=== PATIENT | male | born 1965 | race African-American/Black ===

== ENCOUNTER 2018-11-27 08:12 | Emergency (ER) | payer OTHER ==
[~2018-11-27] VITALS: Ht 167.6 cm; Wt 73.0 kg
[2018-11-27 08:18] VITALS: BP 130/69
--- NOTE | 2018-11-27 08:23 | NUR ---
PT AMBULATED TO ER BED 09
--- NOTE | 2018-11-27 08:30 | NUR ---
PT. BIB FAMILY MEMBER W/ C/O COUGH AND BODY ACHES X 3 DAYS. PT ALSO REPORTS INGUINAL HERNIA X MONTHS. COUGHED UP "SPECK OF BLOOD" PER PATIENT. DENIES ANY N/V/D. DENIES ANY FEVER OR CHILLS AT THIS TIME. 8/10 ACHING PAIN ALL OVER BODY. RR EVEN AND UNLABORED. LS:CLEAR THROUGHOUT. SYMMETRICAL CHEST RISE NOTED. ABLE TO SPEAK IN FULL AND COMPLETE SENTENCES. WILL CONTINUE TO MONITOR. SAFETY PRECAUTIONS IN PLACE. FAMILY MEMBER AT BEDSIDE. ER MD MADE AWARE
--- NOTE | 2018-11-27 08:36 | NUR ---
RESIDENT AT BEDSIDE EVALUATING PATIENT AT THIS TIME
--- NOTE | 2018-11-27 09:24 | NUR ---
influenza a and b specimen collected. lab contacted for pickup
[2018-11-27 10:47] VITALS: BP 130/69
--- NOTE | 2018-11-27 10:47 | NUR ---
Patient discharged with v/s stable. Written and verbal after care instructions given and explained. Patient alert, oriented and verbalized understanding of instructions. Ambulatory with steady gait. All questions addressed prior to discharge. ID band removed. Patient advised to follow up with PMD. Rx of tamiflu/naprosyn/zofran/tessalon perles given. Patient educated on indication of medication including possible reaction and side effects. Opportunity to ask questions provided and answered.
== END 2018-11-27 10:47 | disposition home or self-care (01) ==
LOC: MED 08:12
DX: J10.1 Influenza due to other identified influenza virus with other respiratory manifestations (principal); F17.210 Nicotine dependence, cigarettes, uncomplicated
CPT/HCPCS: 36415; 87804; 99283

== ENCOUNTER 2019-01-14 07:59 | Emergency (ER) | payer OTHER ==
[~2019-01-14] VITALS: Ht 167.6 cm; Wt 68.0 kg
[2019-01-14 08:07] VITALS: BP 142/81
--- NOTE | 2019-01-14 08:07 | NUR ---
53 Y M BIB SELF C/O BACK PAIN X 3 DAYS RADIATING DOWN TO THE R SIDE OF HIS BODY. PAIN 08/02. +ROM, -REDNESS, -SWELLING, -ECCHYMOSIS. PT STATES IT WORSENS WITH COLD WEATHER. 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 PT IN GOWN. BED IS DOWN, LOCKED, BED RAIL X 1, ERMD NOTIFIED. PMH-CHRONIC BACK PAIN, NO PREVIOUS SURGERIES. RX-NONE
--- NOTE | 2019-01-14 09:40 | NUR ---
DR ZHENG AT BEDSIDE
[2019-01-14] MEDS ORDERED: KETOROLAC 60 MG/2 ML VIAL IM ONE (09:45)
[2019-01-14 10:58] VITALS: BP 140/79
--- NOTE | 2019-01-14 10:58 | NUR ---
Patient discharged with v/s stable BY DR ZHENG. Written and verbal after care instructions given and explained. Patient alert, oriented and verbalized understanding of instructions. Ambulatory with steady gait. All questions addressed prior to discharge. ID band removed. Patient advised to follow up with PMD. Rx of NAPROSYN given. Patient educated on indication of medication including possible reaction and side effects. Opportunity to ask questions provided and answered.
== END 2019-01-14 11:03 | disposition home or self-care (01) ==
LOC: MED 07:59
DX: M54.41 Lumbago with sciatica, right side (principal); M51.36 Other intervertebral disc degeneration, lumbar region; G89.29 Other chronic pain
CPT/HCPCS: 96372; 99283; J1885

== ENCOUNTER 2019-01-19 11:52 | Emergency (ER) | payer OTHER ==
[~2019-01-19] VITALS: Ht 167.6 cm; Wt 70.4 kg
[2019-01-19 11:57] VITALS: BP 127/77
--- NOTE | 2019-01-19 12:03 | NUR ---
PATIENT AMBULATED TO ER BED 4
--- NOTE | 2019-01-19 12:18 | NUR ---
PT BIB SELF TO THE ED WITH THE CHIEF C/O NUMBNESS AND PAIN ON RIGHT LEG SINCE TUESDAY. PT WAS HERE ON TUESDAY FOR BACK PAIN. TAKING NAPROSYN FOR BACK PAIN. NAPROSYN IS NOT HELPING TO DECREASE THE LEG PAIN. STATES PAIN OF 8/10 AT THIS TIME. NO SWELLING OR REDNESS. PT AMBULATES. DENIES ANY OTHER PROBLEM AT THIS TIME. PT SEEN BY ER .
[2019-01-19 12:35] VITALS: BP 125/74
--- NOTE | 2019-01-19 12:35 | NUR ---
Patient discharged with v/s stable. Written and verbal after care instructions given and explained. Patient alert, oriented and verbalized understanding of instructions. Ambulatory with steady gait. All questions addressed prior to discharge. ID band removed. Patient advised to follow up with PMD. Rx of VALIUM AND BACITRACIN given. Patient educated on indication of medication including possible reaction and side effects. Opportunity to ask questions provided and answered.
== END 2019-01-19 12:35 | disposition home or self-care (01) ==
LOC: MED 11:52
DX: M79.651 Pain in right thigh (principal); M54.31 Sciatica, right side
CPT/HCPCS: 99283

== ENCOUNTER 2023-03-23 12:08 | Emergency (ER) | payer OTHER ==
[~2023-03-23] VITALS: Ht 167.6 cm; Wt 67.6 kg
[2023-03-23 12:31] VITALS: BP 120/61
[2023-03-23 13:19] LABS: APPEARANCE,URINE CLEAR (CLEAR); BILIRUBIN,URINE NEGATIVE (NEGATIVE); BLOOD, URINE NEGATIVE (NEGATIVE); COLOR,URINE YELLOW (YELLOW); LEUKOCYTE ESTERASE ,URINE NEGATIVE (NEGATIVE); NITRITE, URINE NEGATIVE (NEGATIVE); PH,URINE 7.5 (5.0-9.0); UGLUCOSE NEGATIVE (NEGATIVE)
--- NOTE | 2023-03-23 13:21 | NUR ---
57 Y/O MALE BIB SELF, C/O LLQ ABDOMINAL PAIN AND DYSURIA FOR 3 MONTHS. PMH: DELIAIES PATSY
[2023-03-23 13:49] LABS: BASOPHILS # (AUTO) 0.1 K/uL (0.00-0.22); BASOPHILS % (AUTO) 0.8 % (0.0-2.0); EOSINOPHILS # (AUTO) 0.2 K/uL (0-0.4); EOSINOPHILS % (AUTO) 2.9 % (0.0-4.0); HEMATOCRIT 43.7 % (36-52); HEMOGLOBIN 14.7 g/dL (12.0-18.0); LYMPHOCYTES # (AUTO) 1.9 K/uL (2.0-11.5); MEAN CORPUSCULAR HEMOGLOBIN 31 pg (27-31); MEAN CORPUSCULAR HGB CONC 34 g/dL (33-37); MEAN CORPUSCULAR VOLUME 91.1 fL (80-94); MONOCYTES # (AUTO) 0.5 K/uL (0.8-1.0); NEUTROPHILS # (AUTO) 4.2 K/uL (1.8-7.7); NEUTROPHILS % (AUTO) 61.3 % (42.2-75.2); PLATELET COUNT (AUTO) 315 K/uL (140-450); RED BLOOD CELL COUNT(AUTO) 4.79 MIL/uL (4.20-6.10); RED CELL DISTRIBUTION WIDTH 13.9 % (11.6-13.7); WHITE BLOOD COUNT (AUTO) 6.9 K/uL (4.8-10.8)
[2023-03-23 14:08] LABS: ANION GAP 9.3 (8-16); CARBON DIOXIDE 31.7 mmol/L (21-32); CREATININE 1.1 mg/dL (0.6-1.3)
[2023-03-23 14:14] LABS: ALBUMIN 3.2 g/dL (3.4-5.0); TOTAL BILIRUBIN 0.4 mg/dL (0.0-1.0)
[2023-03-23 16:35] VITALS: BP 128/62
--- NOTE | 2023-03-23 16:35 | NUR ---
Patient discharged with v/s stable. Written and verbal after care instructions given and explained. Patient verbalized understanding. Ambulatory with steady gait. All questions addressed prior to discharge. Advised to follow up with PMD.
== END 2023-03-23 16:33 | disposition home or self-care (01) ==
LOC: MED 12:08
DX: K40.90 Unilateral inguinal hernia, without obstruction or gangrene, not specified as recurrent (principal); Z79.899 Other long term (current) drug therapy
CPT/HCPCS: 36415; 74177; 80053; 81003; 83605; 85025; 99285; Q9967